=== PATIENT | female | born 1975 | race Caucasian/White ===

== ENCOUNTER 2016-07-05 18:57 | Emergency (ER) | payer BC ==
[~2016-07-05] VITALS: Ht 162.6 cm; Wt 74.0 kg
[2016-07-05 20:02] VITALS: Ht 162.6 cm; Wt 74.0 kg
--- NOTE | 2016-07-06 01:40 | ERA ---
ER Documentation Chief Complaint Date/Time DATE: 07/06/16 TIME: 01:40 Chief Complaint intermittent chest pain x 4 days HPI The patient is a 40-year-old female, presenting to the ER because of intermittent left-sided chest discomfort for the last 4 days. She denies any chest pain, complaints of minimal chest discomfort now. She denies similar symptoms previously, denies headache, syncope, near syncope. She complains of chronic neck pain with intermittent left upper extremity numbness that is associated with neck movement. She denies chest pain with diaphoresis, vomiting , and exertion. He denies abdominal pain, vomiting, dysuria, diarrhea. She does not smoke nor drink Past medical history: None Past surgical history: Bilateral ovarian cyst many years ago ROS All systems reviewed and are negative except as per history of present illness. Allergies Allergies: Coded Allergies: Penicillins (Verified Allergy, Unknown, 07/05/16) PMhx/Soc History of Surgery: Yes (abd cyst removal X5,Rt ovary removal) Anesthesia Reaction: No Hx Neurological Disorder: No Hx Respiratory Disorders: No Hx Cardiac Disorders: No Hx Psychiatric Problems: No Hx Miscellaneous Medical Probl: No Hx Alcohol Use: No Hx Substance Use: No Hx Tobacco Use: No Smoking Status: Never smoker Physical Exam Vitals Vital Signs Date Time Temp Pulse Resp B/P Pulse Ox O2 Delivery O2 Flow Rate FiO2 07/05/16 20:02 98.0 70 20 176/82 98 Physical Exam Const: No acute distress. Head: Atraumatic. Eyes: Normal Conjunctiva. ENT: Normal External Ears, Nose and Mouth. Neck: Full range of motion. No meningismus. Resp: Clear to auscultation bilaterally. Cardio: Regular rate and rhythm, no murmurs. Abd: Soft, non distended, normal bowel sounds, non tender. Skin: No petechiae or rashes. Back: No midline or flank tenderness. Ext: No cyanosis, or edema. Neur: Awake and alert. No focal deficit Psych: Normal Mood and Affect. Result Diagram: 07/06/16 0338 Results 24 hrs Laboratory Tests Test 07/06/16 03:38 Activated Partial Thromboplast Time 23.1Sec Anion Gap 17 Blood Urea Nitrogen 19mg/dl Calcium Level 9.3mg/dl Carbon Dioxide Level 27mmol/L Chloride Level 105mmol/L Creatinine 0.66mg/dl D-Dimer < 220.00ng/ml D-Dimer Comment Glucose Level 94mg/dl INR International Normalized Ratio 0.99 Potassium Level 3.9mmol/L Prothrombin Time 13.1Sec Prothrombin Time Ratio 1.0 Serum HCG, Qualitative NEGATIVE Sodium Level 145mmol/L Troponin I < 0.012ng/ml Procedures/MDM EKG: Read by emergency physician at 8:05 PM Rate/Rhythm: Normal Sinus Rhythm 69 beats per min QRS, ST, T-waves: No ST elevation, no T wave inversion, left atrial enlargement, incomplete right bundle branch block, left anterior fascicular block Impression: Abnormal EKG EKG: Read by emergency physician at at 1:56 AM Rate/Rhythm: Normal Sinus Rhythm 63 beats per min QRS, ST, T-waves: No ST elevation, no T wave inversion, left atrial enlargement, incomplete right bundle branch block, LAD Impression: Abnormal EKG [place] [id number] Radiology Main Line: [phone] DIAGNOSTIC IMAGING REPORT Patient: SHADY BOSWELL : 1975 Age: 40 Sex: F MR #: [id number] DOS: 07/06/16 0148 Ordering MD: OMAR MARQUIS MD Location: E/R Room/Bed: PROCEDURE: XR Chest. CLINICAL INDICATION: Chest pain. TECHNIQUE: Single frontal view of the chest was obtained COMPARISON: None FINDINGS: The heart and mediastinum are within normal limits. Right infrahilar air space disease is mild. Left lung is clear. There is no pleural effusion or pneumothorax. IMPRESSION: Mild right infrahilar airspace disease, and findings may represent developing pneumonia. RPTAT: [facility] Physician Marlene Date Time Electronically viewed and signed by Physician Marlene on 07/06/2016 02:36 RS/ CC: OMAR MARQUIS MD MEDICAL MAKING DECISION: The patient is a 40-year-old female, presenting with acute intermittent chest pain of unclear etiology, acute pneumonia, cervical radiculopathy. She remains went to [facility] department. The differential diagnoses considered include but are not limited to acute coronary syndrome, acute myocardial infarction, pericarditis, pulmonary embolism, aortic dissection , pneumonia, pleural effusion, pneumothorax, GERD, chest wall pain. Departure Diagnosis: Primary Impression: Chest pain Additional Impressions: Pneumonia Cervical radiculopathy Condition: Good Comments She was discharged with Zithromax and Motrin I discussed the findings with the patient. I advised the patient to follow-up with the primary physician in about 1-2 days, sooner if needed and return if any concern. The patient's blood pressure was elevated (>120/80) but appears stable without evidence of hypertension emergency or urgency. The patient was counseled about the risks of hypertension and urged to pursue outpatient monitoring and therapy within a week with their primary care physician. OMAR MARQUIS MD Jul 06, 2016 01:40
--- NOTE | 2016-07-06 02:37 | RADRPT ---
PROCEDURE: XR Chest. CLINICAL INDICATION: Chest pain. TECHNIQUE: Single frontal view of the chest was obtained COMPARISON: None FINDINGS: The heart and mediastinum are within normal limits. Right infrahilar air space disease is mild. Left lung is clear. There is no pleural effusion or pneumothorax. IMPRESSION: Mild right infrahilar airspace disease, and findings may represent developing pneumonia. RPTAT: [facility] Physician Marlene Date Time Electronically viewed and signed by Amador Muñoz Physician on 07/06/2016 02:36 RS/
[2016-07-06 03:18] LABS: INR 0.99; PARTIAL THROMBOPLASTIN TIME 23.1 Sec (25.0-35.0); PROTIME 13.1 Sec (12.2-14.2)
[2016-07-06 03:52] LABS: CHLORIDE 105 mmol/L (97-110); POTASSIUM 3.9 mmol/L (3.5-5.1); SODIUM 145 mmol/L (135-144)
[2016-07-06 03:55] LABS: ANION GAP 17 (8-16); BLOOD UREA NITROGEN 19 mg/dl (7-20); CARBON DIOXIDE 27 mmol/L (21-31); CREATININE 0.66 mg/dl (0.44-1.00); GLUCOSE 94 mg/dl (70-220)
[2016-07-06 03:56] LABS: CALCIUM 9.3 mg/dl (8.4-10.2)
[2016-07-06 04:20] LABS: D-DIMER < 220.00 ng/ml (<460)
[2016-07-06 04:32] LABS: TROPONIN-I < 0.012 ng/ml (0.00-0.12)
[2016-07-06 05:01] LABS: HEMATOCRIT 38.1 % (37.0-47.0); HEMOGLOBIN 12.5 g/dl (12.0-16.0); MEAN CORPUSCULAR HEMOGLOBIN 28.9 pg (29.0-33.0); MEAN CORPUSCULAR HGB CONC 32.8 g/dl (32.0-37.0); MEAN CORPUSCULAR VOLUME 88.2 fl (82.0-101.0); PLATELET COUNT 360 10^3/UL (140-440); RED BLOOD COUNT 4.32 10^6/ul (4.20-5.40); RED CELL DISTRIBUTION WIDTH 13.2 % (11.5-14.5); WHITE BLOOD COUNT 8.7 10^3/ul (4.8-10.8)
[2016-07-06 05:02] LABS: BASOPHIL # 0.1 10^3/ul (0.0-0.1); BASOPHILS % 0.8 % (0.0-2.0); EOSINOPHILS # 0.2 10^3/ul (0.0-0.5); EOSINOPHILS % 1.8 % (0.0-7.0); LYMPHOCYTES # 3.6 10^3/ul (0.8-2.9); LYMPHOCYTES % 41.6 % (15.0-51.0); MEAN PLATELET VOLUME 10.9 fl (7.4-10.4); MONOCYTE # 0.7 10^3/ul (0.3-0.9); NEUTROPHIL # 4.2 10^3/ul (1.6-7.5); NEUTROPHILS % 47.6 % (39.0-77.0)
[2016-07-06 05:04] VITALS: BP 119/91; PULSE 65; RESP 18
[2016-07-06] MEDS ORDERED: AZIT250T94 PO (05:05)
[2016-07-06] MEDS ORDERED: IBUP-1542 PO (05:06)
== END 2016-07-06 05:35 | disposition home or self-care (01) ==
LOC: EDSEX 18:57 → E/R 18:57
DX: R07.9 Chest pain, unspecified (principal); R40.2142 Coma scale, eyes open, spontaneous, at arrival to emergency department; J18.9 Pneumonia, unspecified organism; M54.12 Radiculopathy, cervical region; R40.2252 Coma scale, best verbal response, oriented, at arrival to emergency department; R40.2362 Coma scale, best motor response, obeys commands, at arrival to emergency department
CPT/HCPCS: 36415; 71010; 80048; 84484; 84703; 85025; 85378; 85610; 85730; Z7502; 93005

== ENCOUNTER 2018-03-30 19:39 | Emergency (ER) | END 2018-03-31 01:07 | disposition home or self-care (01) ==